=== PATIENT | male | born 1965 | race Caucasian/White ===

== ENCOUNTER 2016-09-18 15:40 | Emergency (ER) | payer SELFPAY ==
--- NOTE | 2016-09-23 07:21 | ER ---
ADMIT: 09/18/2016 RM/LOC: ER [facility] MR#: [id number] [address] [address] JENNIFER HARDEN Dinesh [address] [place] [address] Emergency Room Report SEX: M AGE: 51 : 1965 DATE: 09/18/2016 TIME: 1540 hours. PRIMARY CARE: Dr. Ruben Bonilla. Please refer to my T-sheet for complete H and P. HISTORY OF PRESENT ILLNESS: Briefly, the patient is a 51-year-old, who comes in with right foot and toe swollen. He has had a history of gout. He said he bumped his toe, it really did not hurt, then it started swelling a couple of days later, and it has been going on for two days. No other complaints. No fevers or chills. PHYSICAL EXAMINATION: VITAL SIGNS: Stable. He is afebrile. 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 No breaks in the skin. EMERGENCY DEPARTMENT COURSE: I gave him a dose of Indocin, and he is ready for discharge. ASSESSMENT: Gout flare. PLAN: Indocin 50 t.i.d. for 5 days. Return if worse. Follow up with Dr. Bonilla. Ar Louis MD/ ute JOB #: [id number] CC: Ar Louis MD, Attending Physician Ruben Bonilla MD, Family Physician
== END 2016-09-18 16:05 | disposition home or self-care (01) ==
LOC: ER 15:40
DX: M10.9 Gout, unspecified (principal)

== ENCOUNTER 2016-10-03 21:53 | Emergency (ER) | payer SELFPAY ==
--- NOTE | 2016-10-11 18:52 | ER ---
ADMIT: 10/03/2016 RM/LOC: ER [facility] MR#: [id number] [address] JENNIFER HARDEN [address] [place] [address] Emergency Room Report SEX: M AGE: 51 : 1965 DATE: 10/03/2016 ADDENDUM: This patient comes into the ER because he had been doing some heavy lifting of concrete and stones and now is having back pain. It is bad enough that it is disturbing his sleep. He has had a history of having back injuries about 10 years ago where he had to have injection. On physical exam, he has difficulty getting in and out of sitting position. He is tender in his lower lumbar spine, does not lateralize to one side. He does ambulate without any difficulty. DIAGNOSIS: Lower lumbar strain. He was given Valium and tramadol in the ER. I wrote a prescription for Valium and tramadol. He should follow up with his primary in the next week if not better. Please see my T-sheet. HORTENSIA Myles / Sam Araiza MD / ute JOB #: [id number] CC: Sam Araiza MD, Attending Physician John Covarrubias MD, Family Physician
== END 2016-10-03 22:48 | disposition home or self-care (01) ==
LOC: ER 21:53
DX: S39.012A Strain of muscle, fascia and tendon of lower back, initial encounter (principal); X50.9XXA Other and unspecified overexertion or strenuous movements or postures, initial encounter